=== PATIENT | female | born 1975 | race Caucasian/White ===

== ENCOUNTER 2019-07-05 14:45 | Emergency (ER) | payer OTHER ==
[2019-07-05] MEDS ORDERED: Ibuprofen TAB* 600 MG PO ONE (17:24)
--- NOTE | 2019-07-05 17:26 | ED ---
Upper Extremity Pain - HPI Summary HPI Summary: Pt is a 44 y/o F presenting to the ED for a chief complaint of left arm and shoulder pain. Pt was at work lifting boxes of approximately 15 pounds when she began to feel a shooting pain up the left upper extremity. When she moves the left arm and shoulder she describes paresthesia. The pain worsens with movement and improves with rest. Pt denies fever. Pt denies PMHx of HTN or DM, or any significant FMHx. Pt has a PSHx of gallbladder. - History of Current Complaint Chief Complaint: EDExtremityUpper Stated Complaint: LT SHOULDER INJ PER PT Time Seen by Provider: 07/05/19 16:37 Hx Obtained From: Patient Hx Last Menstrual Period: 06/10/15 Mechanism Of Injury: Other - Lifting 15 pounds Onset/Duration: Started Hours Ago, Atraumatic, Still Present Timing: Lasting Hours Severity Initially: Moderate Severity Currently: Moderate Pain Location: Shoulder - Left, Arm - Left Character: Sharp - Shooting pain Aggravating Factor(s): Movement Alleviating Factor(s): Rest Associated Signs & Symptoms: Positive: Numbness/Tingling - Left UE and shoulder. Negative: Fever - Allergies/Home Medications Allergies/Adverse Reactions: Allergies Allergy/AdvReac Type Severity Reaction Status Date / Time erythromycin base AdvReac Severe Nausea And Verified 07/05/19 17:44 [From Erythrocin] Vomiting Home Medications: Home Medications Cetirizine* [ZyrTEC 10 MG TAB*] 10 mg PO DAILY 07/05/19 [History Confirmed 07/05] Dextroamphetamine/Amphetamine [Adderall 10 mg Tablet] 5 - 10 mg PO .LATER IN AFTERNOON 07/05/19 [History Confirmed 07/05/19] Dextroamphetamine/Amphetamine [Adderall 10 mg Tablet] 10 mg PO BID 07/05/19 [ History Confirmed 07/05/19] Escitalopram * [Lexapro *] 20 mg PO DAILY 07/05/19 [History Confirmed 07/05/19] Furosemide TAB* [Lasix TAB*] 20 mg PO DAILY 07/05/19 [History Confirmed 07/05/19 ] HYDROcodone/ACETAMIN 5-325 MG* [[place] 5-325 TAB*] 1 tab PO Q8H PRN 07/05/19 [ History Confirmed 07/05/19] Meloxicam(NF) [Mobic(NF)] 7.5 mg PO BID 07/05/19 [History Confirmed 07/05/19] Zolpidem TAB* [Ambien TAB*] 10 mg PO BEDTIME PRN 07/05/19 [History Confirmed 11/22] busPIRone TAB* [Buspar TAB*] 10 mg PO BID 07/05/19 [History Confirmed 07/05/19] traZODone TAB* [Desyrel TAB*] 50 - 100 mg PO BEDTIME PRN 07/05/19 [History Confirmed 07/05/19] PMH/Surg Hx/FS Hx/Imm Hx Previously Healthy: Yes Endocrine/Hematology History: Denies: Hx Diabetes, Hx Thyroid Disease Cardiovascular History: Denies: Hx Hypertension Respiratory History: Denies: Hx Asthma, Hx Chronic Obstructive Pulmonary Disease (COPD) GI History: Denies: Hx Ulcer - Surgical History Surgical History: Yes Surgery Procedure, Year, and Place: CHOLECYSTECTOMY Infectious Disease History: No Infectious Disease History: Denies: Hx Hepatitis, Hx Human Immunodeficiency Virus (HIV), Traveled Outside the [place] in Last 30 Days - Family History Known Family History: Negative: Diabetes - Social History Alcohol Use: Rare Substance Use Type: Reports: None Smoking Status (MU): Former Smoker Review of Systems Negative: Fever Positive: Arthralgia - Left shoulder, Myalgia - Left UE Positive: Paresthesia - Left UE All Other Systems Reviewed And Are Negative: Yes Physical Exam - Summary Physical Exam Summary: General: Well appearing, no distress Cardiovascular: Skin is well perfused Pulmonary: No respiratory distress, no tachypnea Abdomen: Non-distended Skin: Warm, pink, dry MSK: TTP L AC joint, pain w shoulder abduction, supination. 2+ radial pulse. SILT. No tenderness of the elbow wrist or hand Psych: Normal affect Neuro: A&Ox3 Triage Information Reviewed: Yes Vital Signs On Initial Exam: Initial Vitals Temp Pulse Resp BP Pulse Ox 98.6 F 80 18 120/92 96 07/05/19 14:53 07/05/19 14:53 07/05/19 14:53 07/05/19 14:53 07/05/19 14:53 Vital Signs Reviewed: Yes Procedures - Sedation Patient Received Moderate/Deep Sedation with Procedure: No Diagnostics - Vital Signs Vital Signs Temp Pulse Resp BP Pulse Ox 07/05/19 14:53 98.6 F 80 18 120/92 96 - Laboratory Lab Statement: Any lab studies that have been ordered have been reviewed, and results considered in the medical decision making process. - Radiology Shoulder X-ray Radiology Interpretation Completed By: Radiologist Summary of Radiographic Findings: Shoulder X-ray IMPRESSION: SOFT TISSUE CALCIFICATION SUGGESTIVE OF A CALCIFIC TENDINOPATHY. NO ACUTE OSSEOUS INJURY. IF SYMPTOMS PERSIST, RECOMMEND REPEAT IMAGING. Reviewed by ED physician. Course/Dx - Course Course Of Treatment: 44-year-old female who presents with left shoulder pain after lifting a box. Exam with tenderness at the AC joint as well as shoulder pain with supination and abduction. XRs here are negative. Suspect that paresthesias could be secondary to pinched nerve. Patient advised to follow-up with orthopedics if she has continued pain. Given lidocaine patch and motrin. - Diagnoses Provider Diagnoses: Shoulder pain Discharge ED - Sign-Out/Discharge Documenting (check all that apply): Patient Departure - Discharge - Discharge Plan Condition: Stable Disposition: HOME Patient Education Materials: Shoulder Pain (ED) Forms: *Work Release Referrals: Zuleika Sunshine PA [Primary Care Provider] - Additional Instructions: You were seen in the emergency department for the pain. Your x-ray did not show any fractures. It shows calcifications consistent with tendinitis. Take Motrin 600 mg every 8 hours as needed for pain. If any studies were not completed at the time of discharge you will be called with the relevant results. Please follow up with your primary care doctor in next 2-3 days and return to emergency department for worsening or concerning symptoms. It was a pleasure taking care of you today. - Billing Disposition and Condition Condition: STABLE Disposition: Home - Attestation Statements Document Initiated by Scribe: Yes Documenting Scribe: Taryn Brown Provider For Whom Travis is Documenting (Include Credential): Vincent Lai MD. Scribe Attestation: Taryn Bledsoe, maryed for Vincent Lai MD. on 07/05/19 at 2001. Scribe Documentation Reviewed: Yes Provider Attestation: The documentation as recorded by the Taryn peterson accurately reflects the service I personally performed and the decisions made by , Vincent Lai MD. Status of Scribe Document: Viewed
[2019-07-05] MEDS ORDERED: Lidocaine PATCH 5%* 1 PATCH TRANSDERM SCH (18:00)
[2019-07-05 18:01] VITALS: BP 121/79
[2019-07-05] MEDS ORDERED: Lidocaine Patch REMOVE* 1 NOTE MISC SCH ×2 (21:00)
== END 2019-07-05 17:55 | disposition home or self-care (01) ==
LOC: ED 14:45
DX: M25.512 Pain in left shoulder (principal); R20.2 Paresthesia of skin; Z88.1 Allergy status to other antibiotic agents; Z87.891 Personal history of nicotine dependence
CPT/HCPCS: 99282; A9270-GY

== ENCOUNTER 2019-08-15 12:46 | Emergency (ER) | payer OTHER ==
[2019-08-15 13:29] VITALS: BP 135/87
--- NOTE | 2019-08-15 14:16 | UC ---
Throat Pain/Nasal Eusebio HPI - HPI Summary HPI Summary: 44 yo female presents with sinus symptoms. She tells me that over the last week she has had sinus pain/pressure/congestion. Over the last 3 days has had dizziness, blurry vision, nausea, and vomiting. She has been drinking well, but has not eaten. Last night she had a "migraine" - states has not had a migraine in about a year, but has a long history of headaches when she was younger and saw "many neurologists". She has not been taking anything OTC for her symptoms. She denies fever, chills, SOB, chest pain, abdominal pain, dysuria, back pain, current headache, numbness, tingling, or weakness. She does not smoke. - History of Current Complaint Chief Complaint: UCGeneralIllness Stated Complaint: NAUSEA/VOMITING SINUS ISSUE Time Seen by Provider: 08/15/19 14:16 Hx Obtained From: Patient Hx Last Menstrual Period: a few days ago Severity: Mild Pain Intensity: 1 Pain Scale Used: 0-10 Numeric - Allergies/Home Medications Allergies/Adverse Reactions: Allergies Allergy/AdvReac Type Severity Reaction Status Date / Time erythromycin base AdvReac Severe Nausea And Verified 08/15/19 13:28 [From Erythrocin] Vomiting Home Medications: Home Medications Mometasone Furoate [Nasonex] 1 spray INH DAILY 08/15/19 [History Confirmed 08/15] PMH/Surg Hx/FS Hx/Imm Hx - Additional Past Medical History Additional PMH: ADHD Asthma Psychological History: Anxiety, Depression - Surgical History Surgical History: Yes Surgery Procedure, Year, and Place: CHOLECYSTECTOMY. breast reduction - Family History Known Family History: Negative: Diabetes - Social History Lives: With Family Alcohol Use: Rare Substance Use Type: None Smoking Status (MU): Former Smoker When Did the Patient Quit Smoking/Using Tobacco: COUPLE YEARS Review of Systems All Other Systems Reviewed And Are Negative: No Constitutional: Positive: Negative Skin: Positive: Negative Eyes: Positive: Blurred Vision ENT: Positive: Sinus Congestion, Sinus Pain/Tenderness Respiratory: Positive: Negative Cardiovascular: Positive: Negative Gastrointestinal: Positive: Vomiting, Nausea Genitourinary: Positive: Negative Motor: Positive: Negative Neurovascular: Positive: Negative Musculoskeletal: Positive: Negative Neurological: Positive: Other - Dizziness Psychological: Positive: Negative Physical Exam - Summary Physical Exam Summary: GENERAL: NAD. WDWN. No pain distress. SKIN: No rashes, sores, ulcers, masses, lesions. HEENT: Head: AT/NC. No raccoon eyes or battles sign. Eyes: PERRLA. EOM intact. Conjunctiva clear without inflammation or discharge. Ears: Hearing grossly normal. TMs intact, no bulging, erythema, or edema. No hemotympanum Nose: Nasal mucosa pink and moist. TTP maxillary and frontal sinus. Throat: Posterior oropharynx without exudates, erythema, or tonsillar enlargement. Uvula midline. NECK: Supple. Nontender. FROM CHEST: CTAB. No r/r/w. No accessory muscle use. Breathing comfortably and in no distress. CV: RRR. Pulses intact. Brisk cap refill. ABDOMEN: Soft. NTTP. Bowel sounds present MSK: FROM in B/L UEs and LEs with symmetric strength. NEURO: A&Ox3. 3 word recall, remote, recent memory, ability to follow 2-step directions, and attention intact. CN: II: Peripheral ram intact. Vision normal. III, IV, : EOMI. No nystagmus. PERRLA. V: Sensations intact and symmetric. Opens mouth and clenches teeth. VII: No facial asymmetry. Forehead wrinkles. Grins, shuts eyes, frowns, puffs cheeks. VIII: Hearing intact to finger rub. IX, X: Swallows and coughs. Uvula midline. XI: Shrugs shoulders. Turns head against resistance. XII: No tongue deviation [id number] are intact. Gait with normal base. Romberg: maintains balance, no pronator drift. Normal speech. No facial drooping. PSYCH: Age appropriate behavior. Triage Information Reviewed: Yes Vital Signs: Initial Vital Signs Temp 98.3 F 08/15/19 13:24 Pulse 79 08/15/19 13:24 Resp 18 08/15/19 13:24 BP 135/87 08/15/19 13:24 Pulse Ox 98 08/15/19 13:24 Laboratory Tests 08/15/19 14:40 POC Urine Color Yellow POC Urine Clarity Slightly cloudy POC Urine pH 6.5 POC Ur Specif [place] 1.010 POC Urine Protein Negative POC Ur Glucose (UA) Negative POC Urine Ketones Negative POC Urine Blood 3+ A POC Urine Nitrite Negative POC Urine Bilirubin Negative POC Urine Urobilinogen 0.2 POC U Leukocyte Esteras 1+ A Vital Signs Reviewed: Yes Diagnostics - Radiology Brain CT Radiology Interpretation Completed By: Radiologist Summary of Radiographic Findings: IMPRESSION: NO ACUTE INTRACRANIAL PATHOLOGY. 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 Spoke with Dr. Rodriguez and he states malformation is 9mm. Throat Pain/Nasal Course/Dx - Course Course Of Treatment: GCS 15 NIH [address] Medley of neurology and he recommends outpatient f/u with Neurology. Will treat her for sinusitis at this time. Made her aware of stroke/CVA symptoms and advised to call 911 or go to the ED if she develops these. - Differential Dx/Diagnosis Provider Diagnosis: Sinusitis, Vomiting, Dizziness Discharge ED - Sign-Out/Discharge Documenting (check all that apply): Patient Departure All imaging exams completed and their final reports reviewed: Yes - Discharge Plan Condition: Stable Disposition: HOME Prescriptions: Amoxicillin PO (*) [Amoxicillin 875 MG (*)] 875 mg PO BID #14 tab Ondansetron ODT TAB* [Zofran 4 MG Odt TAB*] 4 mg PO Q8H PRN #12 tab.odt PRN Reason: Nausea Patient Education Materials: Sinusitis (ED), Chiari Malformation (DC) Forms: *Work Release Referrals: Dov Marie MD [Medical Doctor] - As Soon As Possible Zuleika Sunshine PA [Primary Care Provider] - Additional Instructions: If you develop a fever, shortness of breath, chest pain, new or worsening symptoms - please call your PCP or go to the ED immediately. Please follow up with Neurology for your Chiari Malformation - this could be contributing to your headaches - Billing Disposition and Condition Condition: STABLE Disposition: Home
[2019-08-15] MEDS ORDERED: Ondansetron ODT TAB* 4 MG SL ONE (15:20)
--- NOTE | 2019-08-17 07:22 | UC ---
- Progress Note Progress Note: Progress Note: Urine Culture: No growth. Dx'd with sinusitis. On amoxicillin. No change in treatment. Patient will follow up with Neurology for Chiari malformation and headaches. Chapincito Ball MD Course/Dx - Diagnoses Provider Diagnoses: Sinusitis, Vomiting, Dizziness Discharge ED - Sign-Out/Discharge Documenting (check all that apply): Post-Discharge Follow Up All imaging exams completed and their final reports reviewed: Yes - Discharge Plan Condition: Stable Disposition: HOME Prescriptions: Amoxicillin PO (*) [Amoxicillin 875 MG (*)] 875 mg PO BID #14 tab Ondansetron ODT TAB* [Zofran 4 MG Odt TAB*] 4 mg PO Q8H PRN #12 tab.odt PRN Reason: Nausea Patient Education Materials: Sinusitis (ED), Chiari Malformation (DC) Forms: *Work Release Referrals: Dov Marie MD [Medical Doctor] - As Soon As Possible Zuleika Sunshine PA [Primary Care Provider] - Additional Instructions: If you develop a fever, shortness of breath, chest pain, new or worsening symptoms - please call your PCP or go to the ED immediately. Please follow up with Neurology for your Chiari Malformation - this could be contributing to your headaches - Billing Disposition and Condition Condition: STABLE Disposition: Home
== END 2019-08-15 15:32 | disposition home or self-care (01) ==
LOC: UCEAST 12:46
DX: J32.9 Chronic sinusitis, unspecified (principal); H53.8 Other visual disturbances; R11.2 Nausea with vomiting, unspecified; R42 Dizziness and giddiness; Z88.1 Allergy status to other antibiotic agents; Z87.891 Personal history of nicotine dependence
CPT/HCPCS: 70450; 81003; 87086; 99212; A9270-GY; G0463

== ENCOUNTER 2019-08-25 12:31 | Emergency (ER) | payer OTHER ==
[2019-08-25] MEDS ORDERED: Metoclopramide IV* 5 MG/ML 2 ML VIAL IV SLOW PU ONE (13:09)
[2019-08-25] MEDS ORDERED: Dexamethasone IV* 4 MG/ML 1 ML (4 MG) IV SLOW PU ONE (13:09)
[2019-08-25] MEDS ORDERED: NS 0.9% 1000 ML** 1,000 ML IV ONE (13:09)
--- NOTE | 2019-08-25 13:09 | ED ---
Headache - HPI Summary HPI Summary: 44 year old female presents to the ED with a chief complaint of headache for several days. Headache is diffuse with severe pressure, mainly in the back of the head but also radiating behind the eyes. The pain is a 9/10. Patient reports pain in the back of her neck, room-spinning dizziness when she stands up that makes it difficult to ambulate, pressure in her sinuses, and photophobia. Pt denies any fever, chills, diaphoresis, rhinorrhea, erythema of eyes, sore throat, CP, SOB, cough, abdominal pain, N/V, dysuria, hematuria, myalgia, edema, rash, or dizziness. She has had a history of childhood seizures and migraines. These headaches are different than her previous migraines. - History Of Current Complaint Chief Complaint: EDHeadache Stated Complaint: HEADACHE PER PT Time Seen by Provider: 08/25/19 12:49 Hx Obtained From: Patient Hx Last Menstrual Period: a few days ago Onset/Duration: Started days ago, Still Present Initially Headache Was: Initial Pain Scale(0-10)= - 9, Severe Currently Pain Is: Current Pain Scale(0-10)= - 9, Severe Timing: Constant, Days Character: Pressure Location of Headache: Diffuse, Frontal, Occipital Radiates to: Mostly back of head, radiates to behind the eyes and the neck. Aggravating Factor: Position Change, Bright Lights Allevating Factors: Rest Associated Signs And Symptoms: Dizziness, Sinus Pressure, Neck Pain - Allergies/Home Medications Allergies/Adverse Reactions: Allergies Allergy/AdvReac Type Severity Reaction Status Date / Time erythromycin base AdvReac Severe Nausea And Verified 08/25/19 12:36 [From Erythrocin] Vomiting Home Medications: Home Medications Albuterol inh POWDER (NF) [Proair Respiclick] 1 - 2 puff INH QID PRN 08/25/19 [ History Confirmed 08/25/19] Ascorbic Acid TAB* [Vitamin C TAB*] 500 mg PO DAILY 08/25/19 [History Confirmed 08/25/19] Benzonatate CAP* [Tessalon 100 MG CAP*] 200 mg PO TID PRN 08/25/19 [History Confirmed 08/25/19] Calcium Carbonate [Calcium] 500 mg PO DAILY 08/25/19 [History Confirmed 08/25/19 ] Cefdinir cap* [Cefdinir 300 MG cap (NF)] 300 mg PO BID 08/25/19 [History Confirmed 08/25/19] Cholecalciferol TAB* [Vitamin D TAB*] 50,000 units PO WEEKLY 08/25/19 [History Confirmed 08/25/19] Cyclobenzaprine TAB* [Flexeril 10 MG TAB*] 10 mg PO TID PRN 08/25/19 [History Confirmed 08/25/19] Fluticasone Propionate [24 Hour Allergy] 2 spray BOTH NARES DAILY PRN 08/25/19 [ History Confirmed 08/25/19] Montelukast Sodium TAB* [Singulair TAB*] 10 mg PO DAILY 08/25/19 [History Confirmed 08/25/19] Multivit-Min/Folic Acid/Biotin [Hair, Skin and Nails Caplet] 1 each PO DAILY [History Confirmed 08/25/19] [place]-3 Fatty Acids (Nf) [Fish Oil (NF)] 1,000 mg PO DAILY 08/25/19 [History Confirmed 08/25/19] Ondansetron ODT TAB* [Zofran 4 MG Odt TAB*] 4 mg PO TID PRN 08/25/19 [History Confirmed 08/25/19] Psyllium Husk [Sm Fiber] 400 mg PO DAILY 08/25/19 [History Confirmed 08/25/19] RX: Biotin 1 mg PO DAILY 08/25/19 [History Confirmed 08/25/19] SUMAtriptan succinate [Sumatriptan Succinate] 100 mg PO DAILY 08/25/19 [History Confirmed 08/25/19] clonazePAM TAB(*) [KlonoPIN TAB(*)] 1 mg PO TID PRN 08/25/19 [History Confirmed 08/25/19] PMH/Surg Hx/FS Hx/Imm Hx Endocrine/Hematology History: Denies: Hx Diabetes, Hx Thyroid Disease Cardiovascular History: Denies: Hx Hypertension Respiratory History: Denies: Hx Asthma, Hx Chronic Obstructive Pulmonary Disease (COPD) GI History: Denies: Hx Ulcer - Surgical History Surgery Procedure, Year, and Place: CHOLECYSTECTOMY. breast reduction Infectious Disease History: No Infectious Disease History: Denies: Hx Hepatitis, Hx Human Immunodeficiency Virus (HIV), Traveled Outside the [place] in Last 30 Days - Family History Known Family History: Negative: Diabetes - Social History Alcohol Use: Rare Substance Use Type: Reports: None Smoking Status (MU): Former Smoker Review of Systems Negative: Fever, Chills Positive: Photophobia. Negative: Erythema Negative: Sore Throat Negative: Chest Pain Negative: Shortness Of Breath, Cough Negative: Abdominal Pain, Vomiting, Nausea Negative: dysuria, hematuria Negative: Myalgia, Edema Negative: Rash Neurological: Other - Dizziness (room spinning, difficulty ambulating) Positive: Headache All Other Systems Reviewed And Are Negative: Yes Physical Exam - Summary Physical Exam Summary: Constitutional: Well-developed, Well-nourished, Alert. (-) Distressed Skin: Warm, Dry HENT: Normocephalic; Atraumatic. Frontal and Maxillary sinus tenderness. Eyes: Conjunctiva normal Neck: Musculoskeletal ROM normal neck. (-) JVD, (-) Stridor, (-) Tracheal deviation Cardio: Rhythm regular, rate normal, Heart sounds normal; Intact distal pulses. Radial pulses are 2+ and symmetric. (-) Murmur Pulmonary/Chest wall: Effort normal. (-) Respiratory distress, (-) Wheezes, (-) Rales Abd: Soft. (-) Tenderness, (-) Distension, (-) Guarding, (-) Rebound Musculoskeletal: (-) Edema Lymph: (-) Cervical adenopathy Neuro: Alert, Oriented x3, Strength normal, Cranial nerves II-XII are grossly intact. (-) Dysmetria, (-) Nystagmus, (-) Ataxia by finger to nose testing, (-) Sensory deficit. (-)Supine Roll. (-) [place] Hallpike . Psych: Mood and affect Normal Triage Information Reviewed: Yes Vital Signs On Initial Exam: Initial Vitals Temp Pulse Resp BP Pulse Ox 97.5 F 84 16 132/81 96 08/25/19 12:33 08/25/19 12:33 08/25/19 12:33 08/25/19 12:33 08/25/19 12:33 Vital Signs Reviewed: Yes Procedures - Sedation Patient Received Moderate/Deep Sedation with Procedure: No Diagnostics - Vital Signs Vital Signs Temp Pulse Resp BP Pulse Ox 08/25/19 12:33 97.5 F 84 16 132/81 96 - Laboratory Result Diagrams: 08/25/19 13:28 08/25/19 13:28 Lab Statement: Any lab studies that have been ordered have been reviewed, and results considered in the medical decision making process. - CT Head CTA CT Interpretation Completed By: Radiologist Summary of CT Findings: IMPRESSION: 1. NO APPRECIABLE VENOUS SINUS THROMBOSIS. 2. THERE IS ASYMMETRIC ENLARGEMENT OF THE LEFT SUPERIOR ORBITAL VEIN WHICH SUGGESTS INCREASED INTRACRANIAL VENOUS PRESSURE, THOUGH THE ETIOLOGY IS UNCLEAR . THERE IS NO APPRECIABLE ASYMMETRIC VENOUS FILLING OF THE CAVERNOUS SINUS TO SUGGEST CC FISTULA, THOUGH THE SENSITIVITY FOR CC FISTULA OR DURAL AVF IS CONSIDERED LOW. 3. NO ANEURYSM, VASCULAR MALFORMATION, OCCLUSION, OR STENOSIS OF THE VISUALIZED INTRACRANIAL CIRCULATION. 4. NO INTERNAL CAROTID ARTERY STENOSIS BY NASCET CRITERIA. 5. AGAIN NOTED ARE LOW-LYING CEREBELLAR TONSILS. An ED physician has reviewed this report. Headache Course/Dx - Course Course Of Treatment: 44 year old female presents to the ED with a chief complaint of headache for several days. Headache is diffuse with severe pressure , mainly in the back of the head but also radiating behind the eyes. The pain is a 9/10. Patient reports pain in the back of her neck, room-spinning dizziness when she stands up that makes it difficult to ambulate, pressure in her sinuses, and photophobia. Pt denies any fever, chills, diaphoresis, rhinorrhea, erythema of eyes, sore throat, CP, SOB, cough, abdominal pain, N/V, dysuria, hematuria, myalgia, edema, rash, or dizziness. She has had a history of childhood seizures and migraines. These headaches are different than her previous migraines. Normal neuro exam. Negative supine roll and [place]-Hallpike tests. Frontal and maxillary sinus tenderness. Head CT shows: 1. NO APPRECIABLE VENOUS SINUS THROMBOSIS. 2. THERE IS ASYMMETRIC ENLARGEMENT OF THE LEFT SUPERIOR ORBITAL VEIN WHICH SUGGESTS INCREASED INTRACRANIAL VENOUS PRESSURE, THOUGH THE ETIOLOGY IS UNCLEAR . THERE IS NO APPRECIABLE ASYMMETRIC VENOUS FILLING OF THE CAVERNOUS SINUS TO SUGGEST CC FISTULA, THOUGH THE SENSITIVITY FOR CC FISTULA OR DURAL AVF IS CONSIDERED LOW. 3. NO ANEURYSM, VASCULAR MALFORMATION, OCCLUSION, OR STENOSIS OF THE VISUALIZED INTRACRANIAL CIRCULATION. 4. NO INTERNAL CAROTID ARTERY STENOSIS BY NASCET CRITERIA. 5. AGAIN NOTED ARE LOW-LYING CEREBELLAR TONSILS. Laboratory results show HGB 11.9 , urine specific gravity 1.031, urine blood 1+, urine RBC 1+, and urine squamous epithelial cells present. In the ED course the patient was given fluids. We discussed patient care with _ and they recommended _. Patient will be _discharged with follow up from __. The patient is agreeable with this plan. I discussed the case with Dr. Marie on-call for neurology, he recommended discussion with neurosurgery. I did discuss with Dr. Alonzo as a courtesy call, he was not currently on-call for the hospital, he recommended not proceeding with lumbar puncture if there was crowding of the foramen magnum or fourth ventricle. Dr. James confirmed that there was crowding of the foramen magnum. We did discuss MR venogram as well as CSF flow study. Signing out to Dr. Walden at change of shifts 1899 on 08/25/19, pending results. 45 min critical care time was used. - Diagnoses Provider Diagnoses: Elevated intracranial pressure, Headache - Physician Notifications Discussed Care Of Patient With: Stacie Walden - At change of shifts Time Discussed With Above Provider: 19:00 Instructed by Provider To: Other - Discussed with Dr. Walden the plan to talk to Dr. Marie to figure out next steps after all reports get back. 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 - Critical Care Time Critical Care Time: 30-74 min - 45 min Discharge ED - Sign-Out/Discharge Documenting (check all that apply): Sign-Out Patient Signing out patient TO: Stacie Walden - Signing out to Dr. Walden at change of shifts 1899 on 08/25/19. - Discharge Plan Referrals: Zuleika Sunshine PA [Primary Care Provider] - - Attestation Statements Document Initiated by Scribe: Yes Documenting Scribe: Forrest Brady Provider For Whom Scribe is Documenting (Include Credential): Domo Rain MD. Scribe Attestation: Forrest Bledsoe, scribed for Domo Rain MD. on 08/25/19 at 1915. Status of Scribe Document: Ready
[2019-08-25 13:40] LABS: ABS Eosinophils 0.1 10^3/ul (0-0.6); ABS Lymphocytes 2.2 10^3/ul (1.0-4.8); ABS Monocytes 0.4 10^3/ul (0-0.8); ABS Neutrophils 4.1 10^3/ul (1.5-7.7); Eosinophil % 1.6 %; Hematocrit 36 % (35-47); Hemoglobin 11.9 g/dL (12.0-16.0); Lymphocyte % 32.5 %; Mean Corpuscular HGB Conc 33 g/dL (31-36); Mean Corpuscular Hemoglobin 30 pg (27-31); Mean Corpuscular Volume 90 fL (80-97); Mean Platelet Volume 7.9 fL (7.4-10.4); Nucleated Red Blood Cells % 0.1; Platelet Count 323 10^3/uL (150-450); Red Cell Distribution Width 14 % (10-15); White Blood Count 6.9 10^3/uL (3.5-10.8)
[2019-08-25 13:52] LABS: Activated Partial Thrombo Time 35.4 seconds (26.0-38.0); INR 1.02 (0.82-1.09)
[2019-08-25 13:58] LABS: Albumin 4.1 g/dL (3.2-5.2); Albumin/Globulin Ratio 1.5 (1-3); BUN/Creatinine Ratio 18.2 (8-20); C Reactive Protein 2.32 mg/L (<8.01); Calcium 8.9 mg/dL (8.6-10.3); EGFR African American 117.7 (>60); EGFR Non-African American 97.3 (>60); Globulin 2.7 g/dL (2-4); Potassium 3.9 mmol/L (3.5-5.0); Total Bilirubin 0.3 mg/dL (0.2-1.0); Total Protein 6.8 g/dL (6.4-8.9)
[2019-08-25] MEDS ORDERED: Iohexol 350* (CONTRAST) 500 ML MDV IV ONE (14:00)
[2019-08-25 15:13] LABS: Urine Appearance Cloudy; Urine Bilirubin Negative (Negative); Urine Blood 1+ (Negative); Urine Color Yellow; Urine Glucose Negative (Negative); Urine Ketones Negative (Negative); Urine Nitrite Negative (Negative); Urine Protein Negative (Negative); Urine Specific Gravity 1.031 (1.010-1.030); Urine Urobilinogen Negative (Negative)
[2019-08-25 15:26] LABS: Urine Bacteria Absent (Absent); Urine Red Blood Cell 1+(3-5/hpf) (Absent); Urine Squamous Epithelial Cell Present (Absent); Urine White Blood Cell Trace(0-5/hpf) (Absent)
[2019-08-25] MEDS ORDERED: LORazepam INJ* 2 MG/ML 1 ML VIAL IV PUSH ONE (18:05)
[2019-08-25] MEDS ORDERED: Lorazepam PYXIS KEY PRN (18:05)
[2019-08-25] MEDS ORDERED: Lorazepam PYXIS KEY ONE (18:10)
[2019-08-25] MEDS ORDERED: Ondansetron INJ* 2 MG/ML VIAL IV ONE ×2 (18:20→21:18)
--- NOTE | 2019-08-25 19:30 | ED ---
Progress - Progress Note Progress Note: Patient is received as a sign-out from Dr. Rain to Dr. Carmichael at 08/25/19 1900 shift change pending MRI cervical spine, MRI brain, and MRV head. MRI CERVICAL SPINE IMPRESSION: 1. No acute abnormality. 2. Widely patent central canal. 3. Low-lying cerebellar tonsils compatible with Chiari malformation. THIS REPORT WAS REVIEWED BY DR. CARMICHAEL MRV HEAD IMPRESSION: No venous thrombus THIS REPORT WAS REVIEWED BY DR. CARMICHAEL BRAIN MRI IMPRESSION: No acute intracranial abnormality. THIS REPORT WAS REVIEWED BY DR. CARMICHAEL 2110 - Patient's case was discussed with Dr. Marie, Dr. Marie recommends ophthalmology follow-up, seeing him in office in three days, and starting the patient on Topamax 25 mg BID. During ED course, patient received Zofran 4 mg IV, Toradol 15 mg IV, and Benadryl 50 mg IV. 2248 - Patient reports some improvement of Sx with medications and will be discharged to home. Patient to be given 25 mg Topamax before discharge. Re-Evaluation - Re-Evaluation First Eval Re-Evaluation Time: 22:49 Change: Improved Comment: 2248 - Patient reports some improvement of Sx with medications and will be discharged to home. Patient to be given 25 mg Topamax before discharge. Course/Dx - Course Course Of Treatment: During ED course, patient received Zofran 4 mg IV, Toradol 15 mg IV, Benadryl 50 mg IV, and Topamax 25 mg PO. - Diagnoses Provider Diagnoses: Headache - Provider Notifications Discussed Care Of Patient With: Dov Marie Time Discussed With Above Provider: 21:11 Instructed by Provider To: Other - 2110 - Patient's case was discussed with Dr. Marie, Dr. Marie recommends ophthalmology follow-up, seeing him in office in three days, and starting the patient on Topamax 25 mg BID. Discharge ED - Sign-Out/Discharge Documenting (check all that apply): Patient Departure - discharge - Discharge Plan Condition: Stable Disposition: HOME Prescriptions: Topiramate TAB(*) [Topamax 25 MG tab] 25 mg PO BID #60 tab Patient Education Materials: Acute Headache (ED) Forms: *Work Release Referrals: Dov Marie MD [Medical Doctor] - Arturo Vance MD [Medical Doctor] - Zuleika Sunshine PA [Primary Care Provider] - Additional Instructions: PLEASE RETURN TO ED FOR ANY NEW OR WORSENING SYMPTOMS. PLEASE FOLLOW UP WITH OPHTHALMOLOGY, NEUROLOGY, AND PRIMARY CARE PHYSICIAN WITHIN THREE DAYS. - Billing Disposition and Condition Condition: STABLE Disposition: Home - Attestation Statements Document Initiated by Rekhae: Yes Documenting Scribe: ALEKSANDAR PORTER Provider For Whom Scribe is Documenting (Include Credential): JAYMIE CARMICHAEL MD Scribe Attestation: I, ALEKSANDAR PORTER, scribed for JAYMIE CARMICHAEL MD on 08/26/19 at 0203. Scribe Documentation Reviewed: Yes Provider Attestation: The documentation as recorded by the ALEKSANDAR peterson accurately reflects the service I personally performed and the decisions made by me, JAYMIE CARMICHAEL MD Status of Scribe Document: Viewed
[2019-08-25] MEDS ORDERED: Ketorolac INJ* 30 MG/ML 1 ML VIAL IV PUSH ONE (21:18)
[2019-08-25] MEDS ORDERED: diPHENhydraMINE IV* 50 MG/ML 1 ml VIAL (BENADRYL) IV ONE (21:18)
[2019-08-25] MEDS ORDERED: Topiramate TAB(*) 25 MG PO ONE ×2 (22:48→22:49)
[2019-08-25 23:29] VITALS: BP 99/65
== END 2019-08-25 23:26 | disposition home or self-care (01) ==
LOC: ED 12:31
DX: R51 Headache (principal); M54.2 Cervicalgia; R42 Dizziness and giddiness; G93.2 Benign intracranial hypertension; Z88.1 Allergy status to other antibiotic agents; Z87.891 Personal history of nicotine dependence
CPT/HCPCS: 36415; 70496; 70498; 70544; 70551; 72141; 80053; 81003; 81015; 83605; 85025; 85610; 85730; 86140; 87040; 87086; 96361; 96374; 96375; 96376; 99284; A9270-GY; J1100; J1200; J1885; J2060; J2405; J2765; Q9967

== ENCOUNTER 2019-08-26 13:41 | Emergency (ER) | payer OTHER ==
[2019-08-26] MEDS ORDERED: diPHENhydraMINE IV* 50 MG/ML 1 ml VIAL (BENADRYL) IV ONE (14:04)
[2019-08-26] MEDS ORDERED: Ketorolac INJ* 30 MG/ML 1 ML VIAL IV ONE (14:04)
[2019-08-26] MEDS ORDERED: Metoclopramide IV* 5 MG/ML 2 ML VIAL IV ONE (14:04)
[2019-08-26] MEDS ORDERED: NS 0.9% 1000 ML** 1,000 ML IV ONE (14:05)
--- NOTE | 2019-08-26 15:56 | ED ---
Headache - HPI Summary HPI Summary: This patient is a 44-year-old female who presents to the ED with a headache times approximately 10 days. Patient was seen yesterday in the ED, CTA, MRA and MRV of the head and neck were performed. This showed the possibility of intracranial pressure with Chiari malformation. Pt has never had this before. She states this feels different than her migraines from when she was young. She was seen by her PCP last week and was placed on sumatriptan. She denies this helping. She came to the ED yesterday and was given Benadryl, Zofran, Ativan and Toradol with some amount of relief. Dr. Marie and Dr. Gibson both were consulted and she has a follow-up with Dr. Marie next week. She was placed on Topamax. She states this has not helped her at this time. She denies any other pain or concerns. Denies any nausea or vomiting. Denies any recent illness otherwise, fevers, sweats, chills. She states there has been no change in her pain scale or location of her RUBIO since yesterday. - History Of Current Complaint Chief Complaint: EDHeadache Stated Complaint: HEADACHE PER PT Time Seen by Provider: 08/26/19 14:03 Hx Obtained From: Patient Hx Last Menstrual Period: a few days ago Onset/Duration: Sudden Onset Initially Headache Was: Initial Pain Scale(0-10)= - 10 Currently Pain Is: Current Pain Scale(0-10)= - 9 Timing: Constant Character: Throbbing Location of Headache: Diffuse, Other: - behind L eye Aggravating Factor: Nothing Allevating Factors: Nothing - Risk Factors SAH Risk Factors: Negative Meningitis Risk Factors: Negative SDH Risk Factors: Negative Temporal Arteritis Risk Factors: Female, - Allergies/Home Medications Allergies/Adverse Reactions: Allergies Allergy/AdvReac Type Severity Reaction Status Date / Time erythromycin base AdvReac Severe Nausea And Verified 08/26/19 13:46 [From Erythrocin] Vomiting Home Medications: Home Medications Magnesium Oxide [Magnesium] 500 mg PO DAILY 08/26/19 [History Confirmed 08/26/19 ] PMH/Surg Hx/FS Hx/Imm Hx Previously Healthy: Yes Endocrine/Hematology History: Denies: Hx Diabetes, Hx Thyroid Disease Cardiovascular History: Denies: Hx Hypertension, Hx Pacemaker/ICD Respiratory History: Denies: Hx Asthma, Hx Chronic Obstructive Pulmonary Disease (COPD) GI History: Denies: Hx Ulcer History: Denies: Hx Renal Disease Sensory History: Denies: Hx Hearing Aid Psychiatric History: Denies: Hx Panic Disorder - Surgical History Surgery Procedure, Year, and Place: CHOLECYSTECTOMY. breast reduction. ear tubes - Immunization History Hx Pertussis Vaccination: No Immunizations Up to Date: Yes Infectious Disease History: No Infectious Disease History: Denies: Hx Hepatitis, Hx Human Immunodeficiency Virus (HIV), Traveled Outside the [place] in Last 30 Days - Family History Known Family History: Negative: Diabetes - Social History Occupation: Unemployed Lives: Alone Alcohol Use: Rare Hx Substance Use: No Substance Use Type: Reports: None Smoking Status (MU): Former Smoker Review of Systems Negative: Fever, Chills, Fatigue, Skin Diaphoresis Negative: Palpitations, Chest Pain Negative: Shortness Of Breath, Cough Positive: Nausea. Negative: Abdominal Pain, Vomiting, Diarrhea Genitourinary: Negative Positive: no symptoms reported, see HPI Negative: Rash, Bruising Positive: Headache All Other Systems Reviewed And Are Negative: Yes Physical Exam Triage Information Reviewed: Yes Vital Signs On Initial Exam: Initial Vitals Temp Pulse Resp BP Pulse Ox 98.0 F 85 18 162/87 97 08/26/19 13:44 08/26/19 13:44 08/26/19 13:44 08/26/19 13:44 08/26/19 13:44 Vital Signs Reviewed: Yes Appearance: Positive: Well-Appearing, Well-Nourished Skin: Positive: Warm, Skin Color Reflects Adequate Perfusion Head/Face: Positive: Normal Head/Face Inspection Eyes: Positive: EOMI, RITA, Conjunctiva Clear Neck: Positive: Supple, No Lymphadenopathy Respiratory/Lung Sounds: Positive: Clear to Auscultation, Breath Sounds Present Cardiovascular: Positive: RRR, Pulses are Symmetrical in both Upper and Lower Extremities Musculoskeletal: Positive: Normal, Strength/ROM Intact Neurological: Positive: Sensory/Motor Intact, Alert, Oriented to Person Place, Time, CN Intact II-III, Normal Gait, Facial Symmetry, Speech Normal Psychiatric: Positive: Affect/Mood Appropriate AVPU Assessment: Alert Procedures - Sedation Patient Received Moderate/Deep Sedation with Procedure: No Diagnostics - Vital Signs Vital Signs Temp Pulse Resp BP Pulse Ox 08/26/19 13:44 98.0 F 85 18 162/87 97 - Laboratory Lab Statement: Any lab studies that have been ordered have been reviewed, and results considered in the medical decision making process. Headache Course/Dx - Course Course Of Treatment: Patient returns to the ED with headache after discharge last evening. Patient states she was able to go home and sleep some, however awoke with continued pain. She denies any worsening pain or symptoms, however states she felt the Topamax was there to improve her symptoms and it "hasn't worked." Denies any sensitivity to light. She is given Benadryl, Reglan, Toradol, normal saline fluids. Discussed case with Dr. Marie, neurology who clarifies the Topamax will take several days to weeks for improvement of symptoms. Until that time, patient will need to be treated for her pain with NSAIDs, Tylenol and possibly opioids. Patient does have hydrocodone at home, however states this has not helped. She was given Benadryl and Toradol here in the ED, I recommend taking Toradol at home for her symptoms as well as Benadryl simultaneously. She has Zofran at home and she states she will again attempt some of her opioids for relief. She understands to call Dr. Marie's office on Wednesday as he is expecting her call. She denies any other concerns at this time. Pain has decreased from a 10/10 to a 3/10. - Diagnoses Differential Diagnosis/HQI/PQRI: Other - intracranial pressure, migraine Provider Diagnoses: Headache - Physician Notifications Discussed Care Of Patient With: Dov Marie Instructed by Provider To: Have Pt Call For Appt. - pt will call wednesday for appt Discharge ED - Sign-Out/Discharge Documenting (check all that apply): Patient Departure - Discharge Plan Condition: Stable Disposition: HOME Prescriptions: Ketorolac TAB * [Toradol TAB *] 10 mg PO Q6H #16 tab Referrals: Dov Marie MD [Medical Doctor] - Zuleika Sunshine PA [Primary Care Provider] - Additional Instructions: Please follow up with Dr. Marie - Call Wednesday for an appt Toradol four times daily Zofran four times daily for nausea Benadryl up to four times daily 25mg Continue with your topamax May also use your at home pain medication as well - Billing Disposition and Condition Condition: STABLE Disposition: Home - Attestation Statements Provider Attestation: I was available for consult. This patient was seen by the [facility]. The patient was not presented to, seen by, or examined by me. Alek Bruno MD
[2019-08-26 16:24] VITALS: BP 127/87
== END 2019-08-26 16:22 | disposition home or self-care (01) ==
LOC: ED 13:41
DX: R51 Headache (principal); Z87.891 Personal history of nicotine dependence; Z90.49 Acquired absence of other specified parts of digestive tract; Z79.899 Other long term (current) drug therapy; Z88.1 Allergy status to other antibiotic agents
CPT/HCPCS: 96361; 96374; 96375; 99283; J1200; J1885; J2765

== ENCOUNTER 2024-06-15 07:29 | Inpatient (IN) ==
[2024-06-15] MEDS: Clindamycin 900 MG/D5W BAG 900 MG/50 ML BAG IVPB ONE (09:45)
[2024-06-15 09:57] LABS: ABS Basophils 0.1 10^3/uL (0.0-0.1); ABS Eosinophils 0.1 10^3/uL (0.0-0.5); ABS Lymphocytes 1.8 10^3/uL (1.0-4.8); ABS Monocytes 1.1 10^3/uL (0.0-0.9); ABS Nucleated RBC 0.02 10^3/ul; Eosinophil % 0.3 %; Hemoglobin 12.4 g/dL (11.5-14.3); Lymphocyte % 10.7 %; Mean Corpuscular Hemoglobin 30.6 pg (27-33); Mean Corpuscular Hgb Conc 33.6 g/dL (31-36); Mean Corpuscular Volume 91.1 fL (80-97); Mean Platelet Volume 7.7 fL (7.5-11.2); Nucleated Red Blood Cells % 0.1 %/100WBC (0.0-0.8); Platelet Count 304 10^3/uL (150-450); Red Blood Count 4.07 10^6/uL (3.63-4.92); Red Cell Distribution Width 12.7 % (12-17)
[2024-06-15] MEDS: Ondansetron 4 mg VIAL 2 MG/ML 2 ml VIAL IV ONE (10:25)
[2024-06-15 10:37] LABS: ALT 16 U/L (7-52); Albumin/Globulin Ratio 1.4 (1-3); Alkaline Phosphatase 95 U/L (35-149); Anion Gap 8 mmol/L (2-16); Blood Urea Nitrogen 14 mg/dL (6-24); C Reactive Protein 168.61 mg/L (<8.01); CO2 Carbon Dioxide 24 mmol/L (22-32); Chloride 105 mmol/L (101-111); Creatinine, Serum 0.72 mg/dL (0.51-0.95); Globulin 2.8 g/dL (2-4); Glucose 102 mg/dL (70-100); Sodium 137 mmol/L (135-145); Total Bilirubin 0.5 mg/dL (0.2-1.0); Total Protein 6.8 g/dL (6.4-8.9); eGFR CKD-EPI 102.4 (>60)
[2024-06-15] MEDS: Iohexol 300 (CONTRAST) 10 ML SDV IV ONE (11:56)
[2024-06-15] MEDS: metroNIDAZOLE IV 500 MG/100ML 500 MG/100 ML BAG IVPB ONE (15:30)
[2024-06-15] MEDS ORDERED: Ondansetron ODT 4 mg TAB 4 MG TAB PO PRN (17:54)
[2024-06-15] MEDS: Enoxaparin 40 MG/0.4 ML SYR SUBCUT SCH (23:58)
[2024-06-16] MEDS: Prochlorperazine 5 mg/ml 2 ml VIAL (10 mg) IV PRN (00:08)
[2024-06-16] MEDS: metroNIDAZOLE IV 500 MG/100ML 500 MG/100 ML BAG IVPB ONE (00:15)
[2024-06-16] MEDS: Meloxicam 7.5 mg TAB (NF) PO PRN (00:18)
[2024-06-16 07:29] LABS: ABS Eosinophils 0.1 10^3/uL (0.0-0.5); ABS Lymphocytes 2.1 10^3/uL (1.0-4.8); ABS Neutrophils 10.2 10^3/uL (1.5-7.6); Eosinophil % 0.4 %; Hematocrit 38.1 % (35-45); Hemoglobin 12.8 g/dL (11.5-14.3); Lymphocyte % 15.7 %; Mean Corpuscular Hemoglobin 31.1 pg (27-33); Mean Corpuscular Hgb Conc 33.6 g/dL (31-36); Mean Corpuscular Volume 92.5 fL (80-97); Mean Platelet Volume 8.1 fL (7.5-11.2); Platelet Count 291 10^3/uL (150-450); Red Blood Count 4.12 10^6/uL (3.63-4.92); Red Cell Distribution Width 12.8 % (12-17); White Blood Count 13.3 10^3/uL (3.8-11.8)
[2024-06-16 07:53] LABS: Calcium 8.9 mg/dL (8.6-10.3); Creatinine, Serum 0.81 mg/dL (0.51-0.95); Magnesium 1.9 mg/dL (1.9-2.7); Potassium 3.7 mmol/L (3.5-5.0); eGFR CKD-EPI 88.9 (>60)
[2024-06-16] MEDS: metroNIDAZOLE IV 500 MG/100ML 500 MG/100 ML BAG IVPB SCH (17:24)
[2024-06-17 06:56] LABS: ABS Eosinophils 0.3 10^3/uL (0.0-0.5); ABS Lymphocytes 2.2 10^3/uL (1.0-4.8); ABS Monocytes 0.8 10^3/uL (0.0-0.9); ABS Neutrophils 4.9 10^3/uL (1.5-7.6); ABS Nucleated RBC 0.01 10^3/ul; Eosinophil % 3.3 %; Hematocrit 35.2 % (35-45); Hemoglobin 11.7 g/dL (11.5-14.3); Lymphocyte % 26.9 %; Mean Corpuscular Hemoglobin 30.9 pg (27-33); Mean Corpuscular Hgb Conc 33.2 g/dL (31-36); Mean Platelet Volume 7.5 fL (7.5-11.2); Nucleated Red Blood Cells % 0.1 %/100WBC (0.0-0.8); Platelet Count 318 10^3/uL (150-450); Red Blood Count 3.79 10^6/uL (3.63-4.92); Red Cell Distribution Width 12.8 % (12-17); White Blood Count 8.2 10^3/uL (3.8-11.8)
[2024-06-17 07:38] LABS: Albumin 3.6 g/dL (3.2-5.2); Albumin/Globulin Ratio 1.5 (1-3); Calcium 8.8 mg/dL (8.6-10.3); Creatinine, Serum 0.82 mg/dL (0.51-0.95); Globulin 2.4 g/dL (2-4); Potassium 4.3 mmol/L (3.5-5.0); Total Bilirubin 0.3 mg/dL (0.2-1.0); eGFR CKD-EPI 87.6 (>60)
[2024-06-18] MEDS: Polyethylene Glycol 3350 17 GM PACKET PO PRN (18:00)
[2024-06-18] MEDS: metroNIDAZOLE IV 500 MG/100ML 500 MG/100 ML BAG IVPB SCH (18:00)
[2024-06-19 13:43] VITALS: BP 127/99
== END 2024-06-19 15:40 | disposition home or self-care (01) | DRG 114 ==
LOC: ED 07:29 → EDHOLD 07:29 → SUATTDRO 15:26 → OBSVTOIN 15:26 → INTOOBSV 15:26 → MED 20:19
PROVIDERS: ADMIT Internal Medicine; ATTEND Internal Medicine